=== PATIENT | male | born 1955 | race African-American/Black ===

== ENCOUNTER 2019-05-26 01:45 | Day surgery (SDC) | payer OTHER ==
[2019-05-26] MEDS ORDERED: ONDANSETRON 4 MG/2 ML VIAL ONE (13:38)
[2019-05-26] MEDS ORDERED: FENTANYL CITR 100 MCG/2 ML ONE (13:38)
[2019-05-26] MEDS ORDERED: propofoL 200 MG/20 ML VIAL IV ONE (13:38)
[2019-05-26] MEDS ORDERED: dexAMETHasone 10 MG/ML VIAL ONE (13:38)
[2019-05-26] MEDS ORDERED: MIDAZOLAM HCL 2 MG/2 ML INJ ONE (13:38)
[2019-05-26] MEDS ORDERED: LIDOCAINE 1% MPF 5 ML VIAL ONE (13:38)
--- OUTSIDE RECORDS SUMMARY | 2019-05-26 13:49 | XMS REPORT ---
:1955 [facility] Address [address] [place] [address] Dr. Jenkins [address] [place] [address] Care Team Providers Name Role Phone Unavailable Unavailable Unavailable Problems This patient has no known problems. Allergies, Adverse Reactions, Alerts This patient has no known allergies or adverse reactions. Medications This patient has no known medications.
--- OUTSIDE RECORDS SUMMARY | 2019-05-26 13:50 | XMS REPORT | Summary of Care ---
:1955 Author Organization [facility] - Health Address [address] [place] [address] Care Team Providers Name Role Phone [facility] Primary Care Provider [facility] Unavailable Onc, Tdcj Telemed Rad Ther Unavailable Unavailable Encounter Details Date Type Department Care Team Description 03/17/2019 Orders Only [facility] Doctor Unassigned, No [address] [facility] [place] [address] [address] [place] [address] Allergies No Known Allergiesdocumented as of this encounter (statuses as of 03/17/2019) Medications Medication Sig Dispensed Refills Start Date End Date Status citalopram 20 mg tablet Take 20 mg by 0 Active mouth at bedtime. risperiDONE 3 mg tablet Take 3 mg by 0 Active mouth every evening. amLODIPine 10 mg tablet Take 10 mg by 0 Active mouth daily. PHENYLEPH/PRAMOXIN/GLYCR Insert into 0 Active /W.PET (HEMORRHOIDAL rectum. CREAM RECTAL) spironolactone 25 mg Take 25 mg by 0 Active tablet mouth 2 (two) times daily. terazosin 10 mg capsule Take 10 mg by 0 Active mouth at bedtime. oxybutynin chloride 5 mg Take 1 tablet by 60 tablet 3 01/10/2018 Active tablet mouth 2 (two) times daily. documented as of this encounter (statuses as of 03/17/2019) Active Problems Problem Noted Date Radiation proctitis 12/21/2016 Overview: Added automatically from request for surgery [id number] Chronic kidney disease, unspecified stage 11/20/2016 Overview: Added automatically from request for surgery [id number] Cirrhosis of liver without ascites, unspecified hepatic cirrhosis type 2016 Overview: Added automatically from request for surgery [id number] Essential hypertension 11/06/2016 Back problem 11/06/2016 Chronic hepatitis C without hepatic coma 11/06/2016 Cirrhosis of liver without ascites 11/06/2016 Chronic kidney disease 11/06/2016 Schizoaffective disorder, depressive type 11/06/2016 Rectal bleeding 11/06/2016 Prostate cancer 09/22/2014 documented as of this encounter (statuses as of 03/17/2019) Social History Tobacco Use Types Packs/Day Years Used Date Never Assessed Sex Assigned at Date Recorded Not on file Job Start Date Occupation Industry Not on file Not on file Not on file Travel History Travel Start Travel End No recent travel history available. documented as of this encounter Last Filed Vital Signs Not on filedocumented in this encounter Plan of Treatment Date Type Specialty Care Team Description 03/17/2019 Maintenance Department Technician Visit Phlebotomy Sudarshan Kerns MD [address] [place] [address] [phone] Pob, Adc Lab Main 03/17/2019 Maintenance Department Technician Visit Phlebotomy Pob, Adc Lab Main Health Maintenance Due Date Last Done Comments DTaP,Tdap,and Td Vaccines (1 - Tdap) 1965 Zoster Recombinant Vaccine (SHINGRIX) (1 02/17/2004 of 2) LUNG CANCER SCREEN: Recommended for age 1202/16/2009 55-80 with 30 + pack year history INFLUENZA VACCINE (#1) 2018 Medicare Wellness Visit 2019 PNEUMOCOCCAL VACCINES 65+ (1 of 2 - PCV13) 2019 COLONOSCOPY 12/21/2026 12/21/2016 HEPATITIS C (HCV) SCREEN Completed 02/27/2019, 08/26/2018 documented as of this encounter Procedures Procedure Name Priority Date/Time Associated Diagnosis Comments ASSIGNMENT OF BENEFITS Routine 03/17/2019 8:51 AM SUPERVISOR TREATING AND PUMPING documented in this encounter Results Not on filedocumented in this encounter Insurance Payer Benefit Plan Subscriber ID Effective Phone Address Type / Group Dates MEDICARE MEDICARE PART xxxxxxxxxxx 1978-Pres [phone] Medicare A & B ent [id number] [place] [address] MEDICARE MEDICARE PART xxxxxxxxxxx 1978-Pres [phone] Medicare A & B ent [id number] [place] [address] AETNA - AETNA [id number] 2019-Pre [address] BOX Medicare Adv [facility] MEDICARE ADV sent [id number] [place] [address] documented as of this encounter
--- OUTSIDE RECORDS SUMMARY | 2019-05-26 13:50 | XMS REPORT | Summary of Care ---
:[address] [facility] Address [address] [place] [address] Care Team Providers Name Role Phone [facility] Primary Care Provider [facility] Unavailable Onc, Tdcj Telemed Rad Ther Unavailable Unavailable Reason for Visit Reason Comments LAB WORK Auth/Cert Status Reason Specialty Diagnoses / Procedures Referred By Contact Referred To Contact Phlebotomy Diagnoses B18.2 R53.83 Adc Pob Lab Draw Procedures Blood count complete auto comp met panel iadna hep c Professional Office Building [address] , [address] [place] [address] Encounter Details Date Type Department Care Team Description 03/17/2019 Elect Equip Maint Eng Visit [facility] Sudarshan Kerns MD [address] [place] [address] Routine general Professional Office Pob, Adc Lab Main medical examination Building Phlebotomy at a health care Lab facility (Primary Professional Office Dx) [address] , [address] [place] [address] Allergies No Known Allergiesdocumented as of this [...] Overview: Added automatically from request for surgery [id number] Chronic kidney disease, unspecified stage 11/20/2016 Overview: Added automatically from request for surgery [id number] Cirrhosis of liver without ascites, unspecified hepatic cirrhosis type 2016 Overview: Added automatically from request for surgery [id number] Essential hypertension 11/06/2016 Back problem 11/06/2016 Chronic [...] filedocumented in this encounter Plan of Treatment Name Type Priority Associated Diagnoses Date/Time CBC WITH DIFF LAB Routine Routine general medical 03/17/2019 9:[address] [facility] care facility COMP. METABOLIC PANEL LAB Routine Routine general medical 03/17/2019 9:11 AM ([id number]) examination at a [facility] facility HCV BY PCR LAB Routine Routine general medical 03/17/2019 9:11 AM examination at a [facility] CBC WITH DIFFERENTIAL LAB Routine Routine general medical 03/17/2019 9:11 AM examination at a [facility] Name Type Priority Associated Diagnoses Order Schedule CBC WITH DIFF LAB Routine Routine general medical Expected: 03/17/2019, examination at [facility] Expires: 03/17/2020 care facility COMP. METABOLIC PANEL LAB Routine Routine general medical Expected: 2019, ([id number]) examination at a health Expires: 03/17/2020 care facility HCV BY PCR LAB Routine Routine general medical Expected: 03/17/2019, examination at a health Expires: 03/17/2020 care facility Health Maintenance Due Date Last Done Comments [...] 02/27/2019, 08/26/2018 documented as of this encounter Results Not on filedocumented in this encounter Visit Diagnoses Diagnosis Routine general medical examination at a health care facility - Primary documented in this encounter Insurance Payer Benefit Plan Subscriber ID Effective Phone Address Type / Group Dates AETNA - AETNA [id number] 2019-Pres [address] Medicare Adv MANAGED MEDICARE ADV ent [id number] [place] [address] documented as of this encounter
--- OUTSIDE RECORDS SUMMARY | 2019-05-26 13:50 | XMS REPORT | Summary of Care ---
:1955 Author Organization [facility] Address [address] [place] [address] Care Team Providers Name Role Phone [facility] Primary Care Provider [facility] Unavailable Onc, Tdcj Telemed Rad Ther Unavailable Unavailable Reason for Visit Reason Comments UNABLE TO URINATE Hematuria Auth/Cert Status Reason Specialty Diagnoses / Referred By Referred To Procedures Contact Contact Emergency Medicine Diagnoses PROBLEM URINATING [facility] Emergency Dept [address] [place] [address] [place] [address] Encounter Details Date Type Department Care Team Description 05/23/2019 Emergency [facility]Emergency Braden Saunders, Urinary retention ( Primary Dx); Department Acute cystitis with hematuria; [address] [place] [address] [address] [facility] Hypertension, [place] [address] [id number] [place], [place] [address] Allergies No Known Allergiesdocumented as of this encounter (statuses as of 05/23/2019) Medications Medication Sig Dispensed Refills Start Date End Date Status citalopram 20 mg Take 20 mg 0 Active tablet by mouth at bedtime. risperiDONE 3 mg Take 3 mg by 0 Active tablet mouth every evening. amLODIPine 10 mg Take 10 mg 0 Active tablet by mouth daily. PHENYLEPH/PRAMOXIN/G Insert into 0 Active LYCR/W.PET rectum. (HEMORRHOIDAL CREAM RECTAL) spironolactone 25 mg Take 25 mg 0 Active tablet by mouth 2 (two) times daily. terazosin 10 mg Take 10 mg 0 Active capsule by mouth at bedtime. oxybutynin chloride Take 1 60 tablet 3 01/10/2018 Active 5 mg tablet tablet by mouth 2 (two) times daily. cephALEXin (KEFLEX) Take 1 10 capsule 0 05/23/2019 Active 500 mg capsule by capsuleIndications: mouth 2 Urinary retention, (two) times Acute cystitis with daily. hematuria phenazopyridine 200 Take 1 9 tablet 0 05/23/2019 Active mg tablet by tabletIndications: mouth 3 Urinary retention (three) times daily. phenazopyridine 200 Take 1 9 tablet 0 05/23/2019 05/23/19 Discontinued mg tablet by 20 (Duplicate) tabletIndications: mouth 3 Urinary retention, (three) Acute cystitis with times daily. hematuria documented as of this encounter (statuses as of 05/23/2019) Active Problems Problem Noted Date Radiation proctitis 12/21/2016 Overview: Added automatically from request for surgery [id number] Chronic kidney disease, unspecified stage 11/20/2016 Overview: Added automatically from request for surgery [id number] Cirrhosis of liver without ascites, unspecified hepatic cirrhosis type 2016 Overview: Added automatically from request for surgery [id number] Essential hypertension 11/06/2016 Back problem 11/06/2016 Chronic hepatitis C without hepatic coma 11/06/2016 Cirrhosis of liver without ascites 11/06/2016 Chronic kidney disease 11/06/2016 Schizoaffective disorder, depressive type 11/06/2016 Rectal bleeding 11/06/2016 Prostate cancer 09/22/2014 documented as of this encounter (statuses as of 05/23/2019) Social History Tobacco Use Types Packs/Day Years Used Date Former Smoker Cigarettes 1.5 6 Quit: 09/23/2007 Smokeless Tobacco: Never Used Alcohol Use Drinks/Week oz/Week Comments Not Asked Sex Assigned at Date Recorded Not on file Job Start Date Occupation Industry Not on file Not on file Not on file Travel History Travel Start Travel End No recent travel history available. 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 PROCEDURES IN THE ER TODAY: Orders Placed This Encounter Procedures URINALYSIS CBC WITH DIFF BASIC METABOLIC PANEL (NA, K, CL, CO2, GLUCOSE, BUN, CREATININE, CA) CBC WITH DIFFERENTIAL URINE CULTURE MEDICATIONS ADMINISTERED IN THE ER TODAY AND DISCHARGE MEDICATIONS: Orders Placed This Encounter Medications cefTRIAXone (ROCEPHIN) 1,000 mg in NaCl 0.9% (NS) 50 mL MINI-BAG cephALEXin (KEFLEX) 500 mg capsule phenazopyridine 200 mg tablet FOLLOW-UP RECOMMENDATIONS: RECOMMEND FOLLOW-UP WITH YOUR UROLOGIST, DR CABRAL In [place] OR [facility] . CALL [phone] TO SCHEDULE UROLOGY CLINIC APPOINTMENT RETURN TO ER FOR WORSENING OF SYMPTOMS AttachmentsThe following attachments cannot be sent through Care Everywhere.Urinary Retention, Male (Mongolian)Urinary Tract Infections (UTIs), Understanding (Mongolian)documented in this encounter Plan of Treatment Name Type Priority Associated Diagnoses Date/Time URINE CULTURE LAB STAT Urinary retention 05/23/2019 9:31 PM CDT Name Type Priority Associated Diagnoses Order Schedule URINE CULTURE LAB Routine Urinary retention ONCE for 1 Occurrences starting 05/23/2019 until 05/23/2019 URINE CULTURE LAB Routine Urinary retention ONCE for 1 Occurrences starting 05/23/2019 until 05/23/2019 Health Maintenance Due Date Last Done Comments [...] encounter Procedures Procedure Name Priority Date/Time Associated Comments Diagnosis CBC WITH DIFFERENTIAL STAT 05/23/2019 9:31 Urinary retention Results for this PM CDT procedure are in the results section. URINALYSIS STAT 05/23/2019 9:31 Urinary retention Results for this PM CDT procedure are in the results section. CBC WITH DIFFERENTIAL STAT 05/23/2019 9:31 Urinary retention Results for this PM CDT procedure are in the results section. BASIC METABOLIC PANEL STAT 05/23/2019 9:31 Urinary retention Results for this (NA, K, CL, CO2, PM CDT procedure are in GLUCOSE, BUN, the results CREATININE, CA) section. documented in this encounter Results CBC WITH DIFFERENTIAL (05/23/2019 9:31 PM CDT) WBC 7.98 4.20 - 10.70 [facility] 10*3/L [facility] RBC 5.94 (H) 4.26 - 5.52 [facility] 10*6/L [facility] HGB 16.3 12.2 - 16.4 [facility] g/dL [facility] HCT 48.6 38.4 - 49.3 % [facility] MCV 81.8 81.7 - 95.6 fL [facility] MCH 27.4 26.1 - 32.7 pg [facility] MCHC 33.5 31.2 - 35.0 [facility] g/dL [facility] RDW-SD 43.6 38.5 - 51.6 fL [facility] RDW-CV 14.9 12.1 - 15.4 % [facility] PLT 244 150 - 328 [facility] 10*3/L [facility] MPV 9.1 (L) 9.8 - 13.0 fL [facility] NRBC/100 WBC 0.0 0.0 - 10.0 /100 [facility] WBCs [facility] NRBC x10^3 <0.01 10*3/L [facility] GRAN MAT (NEUT) % 41.9 % [facility] IMM GRAN % 0.10 % [facility] LYMPH % 45.9 % [facility] MONO % 7.9 % [facility] EOS % 3.6 % [facility] BASO % 0.6 % [facility] GRAN MAT x10^3(ANC) 3.34 1.99 - 6.95 [facility] 10*3/uL [facility] IMM GRAN x10^3 <0.03 0.00 - 0.06 [facility] 10*3/uL [facility] LYMPH x10^3 3.66 (H) 1.09 - 3.23 [facility] 10*3/uL [facility] MONO x10^3 0.63 0.36 - 1.02 [facility] 10*3/uL [facility] EOS x10^3 0.29 0.06 - 0.53 [facility] 10*3/uL [facility] BASO x10^3 0.05 0.01 - 0.09 [facility] 10*3/uL [facility] Specimen Blood - VENOUS Performing Organization Address City/State/Zipcode Phone Number [facility] CLIA: [id number], [address] [place], [place] [id number] [phone] BASIC METABOLIC PANEL (NA, K, CL, CO2, GLUCOSE, BUN, CREATININE, CA) (2019 9:31 PM CDT) NA 142 135 - 145 mmol/L [facility] K 3.8 3.5 - 5.0 mmol/L [facility] CL 108 98 - 108 mmol/L [facility] CO2 TOTAL 23 23 - 31 mmol/L [facility] AGAP 11 2 - 16 [facility] BUN 22 7 - 23 mg/dL [facility] GLUCOSE 98 70 - 110 mg/dL [facility] CREATININE 0.94 0.60 - 1.25 [facility] mg/dL [facility] CALCIUM 10.0 8.6 - 10.6 mg/dL [facility] eGFR Calculation 80.5 mL/min/1.73m2 [facility] (Non-) [facility] eGFR Calculation 97.6 mL/min/1.73m2 [facility] () [facility] Specimen Blood - VENOUS Narrative Performed At Association of Glomerular Filtration Rate (GFR) [facility] and Staging of Kidney Disease* + + +- + | GFR (mL/min/1.73 m2) | With Kidney Damage | Without Kidney Damage + + +- + | >90 | Stage one | Normal + + +- + | 60-89 | Stage two | Decreased GFR + + +- + | 30-59 | Stage three | Stage three + + +- + | 15-29 | Stage four | Stage four + + +- + | <15 (or dialysis) | Stage five | Stage five + + +- + *Each stage assumes the associated GFR level has been in effect for at least three months. Stages 1 to 5, with or without kidney disease, indicate chronic kidney disease. Notes: Determination of stages one and two (with eGFR >59mL/min/1.73 m2) requires estimation of kidney damage for at least three months as defined by structural or functional abnormalities of the kidney, manifested by either: Pathological abnormalities or Markers of kidney damage (including abnormalities in the composition of the blood or urine or abnormalities in imaging tests). Performing Organization Address [facility] Phone Number [facility] CLIA: [id number], [address] [place] [address] [phone] URINALYSIS (05/23/2019 9:31 PM CDT) APPEARANCE Cloudy (A) Clear [facility] COLOR Red (A) Yellow [facility] PH 6.0 4.8 - 8.0 [facility] SP GRAVITY 1.014 1.003 - 1.030 [facility] GLU U QUAL Normal Normal [facility] BLOOD 2+ (A) Negative [facility] KETONES Negative Negative [facility] PROTEIN 100 mg/dL (A) Negative [facility] UROBILIN Normal Normal [facility] BILIRUBIN Negative Negative [facility] NITRITE Negative Negative [facility] LEUK ROSA Negative Negative [facility] RBC/HPF >182 (H) 0 - 3 HPF [facility] WBC/HPF 38 (H) 0 - 5 HPF [facility] BACTERIA Moderate (A) Negative [facility] Specimen Urine - URINE, CLEAN CATCH Performing Organization Address [facility] Phone Number [facility] CLIA: [id number], [address] [place] [address] documented in this encounter Visit Diagnoses Diagnosis Urinary retention - Primary Retention of urine, unspecified Acute cystitis with hematuria Acute cystitis Hypertension, unspecified type documented in this encounter Administered Medications Medication Order MAR Action Action Date Dose Rate Site cefTRIAXone (ROCEPHIN) 1,000 mg Given 05/23/2019 11:08 PM CDT 1,000 mg in NaCl 0.9% (NS) 50 mL MINI-BAG 1,000 mg, IV Piggyback, ONCE, 1 dose, 05/24/19 at 0000, 50 mL, Reason for Anti-Infective: Documented Infection, Documented Infection Site: Urine, Duration of Therapy: Other (see Comments) documented in this encounter Insurance Payer Benefit Plan Subscriber ID Effective Phone Address Type / Group Dates AETNA - AETNA [id number] 2019-Pres [address] Medicare Adv MANAGED MEDICARE ADV ent [id number] [place] [address] (Home) [place] [address] documented as of this encounter"
[2019-05-26] MEDS: HYDROMORPHONE HCL 1 MG/ML INJ ONE ×4 (13:55→16:00)
[2019-05-26] MEDS ORDERED: GENTAMICIN 80 MG/100 ML BAG 80 MG/100 ML BAG IV ONE (13:57)
[2019-05-26] MEDS ORDERED: Ringers Lactate 1,000 ML IV ONE (13:57)
[2019-05-26 14:23] LABS: Absolute Lymphocytes (CBC) 2.7 K/uL (0.7-4.9); Hematocrit 45.3 % (39.6-49.0); Lymphocytes % 42.1 % (15.3-44.8); MPV 7.8 fL (7.6-11.3); RBC Red Blood Cell Count 5.63 M/uL (4.33-5.43)
[2019-05-26 14:24] LABS: Protime INR 1.11
[2019-05-26 14:35] LABS: BUN Blood Urea Nitrogen 15 mg/dL (7-18); Bicarbonate 27 mmol/L (21-32); Glucose Level 85 mg/dL (74-106); Potassium 3.6 mmol/L (3.5-5.1); Sodium Level 142 mmol/L (136-145)
[2019-05-26] MEDS ORDERED: GLYCOPYRROLATE 0.2 MG/ML SYR ONE (15:29)
[2019-05-26] MEDS ORDERED: PROMETHAZINE INJ 25 MG/ML AMP ONE (15:49)
[2019-05-26] MEDS: FENTANYL CITR 100 MCG/2 ML ONE ×2 (16:08→16:15)
[2019-05-26] MEDS ORDERED: TRAMADOL HCL 50 MG TAB ONE (16:18)
[2019-05-26] MEDS ORDERED: OXYBUTYNIN CHLORIDE 5 MG TAB ONE (17:07)
[2019-05-26 17:44] VITALS: TEMP 97.2
[2019-05-26 17:47] VITALS: BP 196/98
[2019-05-26 17:48] VITALS: O2SAT 100
--- NOTE | 2019-05-27 10:58 | EKG ---
Test Date: 2019-05-26 Test Time: 14:12:44 Ground Operations Crew Member: ANCELMO MEASUREMENT RESULTS: Intervals: Rate: 48 [place]: 206 QRSD: 110 QT: 450 QTc: 402 [place]: P: 62 [place]: 206 QRS: 16 T: 37 INTERPRETIVE STATEMENTS: Marked sinus bradycardia Abnormal ECG Compared to ECG 11/20/2018 10:29:43 T-wave abnormality no longer present Electronically Signed On 05-27-19 10:56:19 CDT by Stephen Tamez
== END 2019-05-26 17:45 | disposition home or self-care (01) ==
LOC: OR 01:45
PROVIDERS: ATTEND Urology
PROC: 0VT08ZZ Resection of Prostate, Via Natural or Artificial Opening Endoscopic (ICD-10-PCS; principal; 2019-05-26 12:30)
DX: N40.1 Benign prostatic hyperplasia with lower urinary tract symptoms (principal); N39.0 Urinary tract infection, site not specified; R39.12 Poor urinary stream; N42.9 Disorder of prostate, unspecified; I10 Essential (primary) hypertension; G89.29 Other chronic pain; M54.9 Dorsalgia, unspecified; F20.9 Schizophrenia, unspecified; F17.200 Nicotine dependence, unspecified, uncomplicated; Z82.49 Family history of ischemic heart disease and other diseases of the circulatory system; Z82.3 Family history of stroke
CPT/HCPCS: 93005; 85025; 80048; 36415; 85610; 88305; 85730; 52601; J2704; J2250; J3010 ×2; J1100; J1170 ×2; J7120; J1580; J2405; J2550

== ENCOUNTER 2023-09-04 10:49 | Day surgery (SDC) | payer OTHER ==
[2023-09-02 11:20] LABS: Absolute Basophils 0.1 K/uL (0-0.5); Absolute Eosinophils 0.2 K/uL (0-0.5); Absolute Monocytes 0.3 K/uL (0.1-1.3); Basophils % 0.9 % (0-1.3); Eosinophils % 4.1 % (0-4.4); Hematocrit 44.5 % (39.6-49.0); Hemoglobin 14.8 g/dL (13.6-17.9); Lymphocytes % 35.1 % (15.3-44.8); MCH 28.7 pg (27.0-35.0); MCHC 33.4 g/dL (32.0-36.0); MCV 86.1 fL (80-100); MPV 8.3 fL (7.6-11.3); Neutrophils % 53.9 % (41.7-73.7); Nucleated Red Blood Cells % 0.1 % (0-0); Platelets 221 thou/uL (152-406); RBC Red Blood Cell Count 5.17 M/uL (4.33-5.43); Red Cell Distribution Width 15.1 % (12.1-15.2)
[2023-09-02 11:33] LABS: Albumin 3.6 g/dL (3.4-5.0); Albumin/Globulin Ratio 0.9 (1.1-1.8); Anion Gap 4.3 mEq/L (5.0-15.0); Bilirubin Total 0.4 mg/dL (0.2-1.0); Globulin 3.9 g/dL (2.3-3.5); Potassium 3.3 mEq/L (3.5-5.1); Protein, Total 7.5 g/dL (6.4-8.2)
--- NOTE | 2023-09-02 14:13 | EKG ---
Test Date: 2023-09-02 Test Time: 10:43:20 Lens Grinder And Polisher: ANTHONY MEASUREMENT RESULTS: Intervals: Rate: 66 [place]: 194 QRSD: 96 QT: 404 QTc: 423 [place]: P: 72 [place]: 194 QRS: 31 T: 74 INTERPRETIVE STATEMENTS: Normal sinus rhythm Nonspecific T wave abnormality Abnormal ECG Compared to ECG 05/26/2019 14:12:44 T-wave abnormality now present Sinus bradycardia no longer present Electronically Signed On 09-02-23 14:12:36 CDT by David Mckeon
[2023-09-04] MEDS: Ringers Lactate 1,000 ML IV ONE (11:20)
[2023-09-04] MEDS ORDERED: propofoL 200 MG/20 ML VIAL IV ONE (12:06)
[2023-09-04] MEDS ORDERED: ROCURONIUM 50 MG/5 ML VIAL IV ONE (12:06)
[2023-09-04] MEDS ORDERED: FENTANYL CITR 100 MCG/2 ML ONE (12:06)
[2023-09-04] MEDS ORDERED: KETOROLAC 30 MG/ML INJ ONE (12:06)
[2023-09-04] MEDS ORDERED: ONDANSETRON 4 MG/2 ML VIAL ONE (12:06)
[2023-09-04] MEDS ORDERED: dexAMETHasone 10 MG/ML VIAL ONE (12:06)
[2023-09-04] MEDS ORDERED: MIDAZOLAM HCL 2 MG/2 ML INJ ONE (12:06)
[2023-09-04] MEDS ORDERED: LIDOCAINE 2% MPF 5 ML VIAL ONE (12:06)
[2023-09-04] MEDS: CEFOXITIN SODIUM 2 GM/VIAL ONE (12:29)
[2023-09-04] MEDS ORDERED: GLYCOPYRROLATE 0.2 MG/ML SYR ONE (12:33)
[2023-09-04] MEDS ORDERED: EPHEDRINE SULF 50 MG/ML VIAL ONE (12:33)
[2023-09-04] MEDS: LIDOCAINE HCL/EPINEPHRINE 20 ML MDV ONE (12:45)
--- NOTE | 2023-09-04 13:49 | P.OP ---
Preoperative diagnosis: Chronic Cholecystitis Postoperative diagnosis: Chronic Cholecystitis Primary procedure: Laparoscopic Cholecystectomy with ICG Anesthesia: GETA + Local Estimated blood loss: <5cc Specimen: Gallbladder Findings: Contracted GB with stones, duodenal adhesions Complications: None Transferred to: Recovery Room Condition: Good
[2023-09-04] MEDS: HYDROMORPHONE HCL 1 MG/ML INJ ONE (14:18)
--- NOTE | 2023-09-04 15:15 | OP ---
Date of Procedure: 09/04/2023 Surgeon: Didier Felder MD, Preoperative Diagnosis: Chronic cholecystitis. Postoperative Diagnosis: Chronic cholecystitis. Procedure: Laparoscopic cholecystectomy with the indocyanine green cholangiography. Anesthesia: General endotracheal plus local with 1% lidocaine with epinephrine. Estimated Blood Loss: Less than 5 cc. Specimen: Gallbladder. Findings: Contracted gallbladder with stones and duodenal adhesions to the gallbladder. Complications: None. Disposition: The patient was transferred to recovery room in good condition. Procedure In Detail: After informed consent was obtained, the patient was brought to the operating r oom, prepped and draped in the usual sterile fashion. After adequate anesthesia was achieved, I anes thetized the area of the supraumbilical position down to subcutaneous tissues. 5 mm 0-degree optical trocar was then introduced in the abdomen without incident or complication. Insufflation was obtain ed to 15 mmHg at this time. There was no injury to vital structures upon entry in the abdomen. Thre e additional trocars were placed, one in the epigastrium, one in the right upper quadrant, one in the right mid abdomen, while 5 mm trocar was placed under direct visualization without incident or compl ication. The umbilical trocar was then upsized to a 12 mm under direct visualization without inciden t or complication. The patient was positioned head up, right-side up position. Ratcheted grasper wa s used to grasp the patient's gallbladder and place it towards the patient's right shoulder. Dissect ion continued down the Emma pouch of the gallbladder, dissecting off the duodenum off the anterio r surface of the gallbladder with thick adhesions. Combination of blunt dissection predominantly and minimal electrocautery were used to dissect and separate these structures. After this was completed , there was no injury to duodenal structure. At this point, I performed an indocyanine green cholang iography, identifying the cystic duct, common duct confluence. I then dissected out two structures t o identify both cystic duct and cystic artery. The critical view of safety was obtained, at this poi nt. After the structures were appropriately skeletonized, I then placed double titanium clips doubly on the proximal side and singly on the distal side of both cystic duct and cystic artery. These str uctures were then ligated between Endo Clarita. At this point, the gallbladder was removed from the h epatic fossa without incident or complication. Minimal hemostasis was acquired using electrocautery. Then, I placed gallbladder in an EndoCatch bag, removed through the umbilical trocar site, sent off for pathologic examination. The area was copiously irrigated multiple times until completely dry. Clips were found to be in good anatomic position. Indocyanine green cholangiography confirmed no kleber kage of bile at the end of the procedure. At this point, the patient was positioned back in neutral position. Remaining effluent was suctioned out. I then closed the 12 mm trocar site using a Carlos- Davion suture passer with 0 Vicryl in an interrupted fashion, with good approximation of tissues. The abdomen was desufflated under direct visualization without incident or complication. Remainder o f trocars were removed. All skin incisions were then copiously irrigated and closed with a 4-0 Monoc ryl in a running fashion. Dermabond was placed over top. The patient tolerated the procedure well w ithout incident or complication, transferred to PACU in good condition. All counts were correct at t he end of the case. DARRICK/REEMA Voice ID: [id number] Report ID: [id number]
[2023-09-04] MEDS: HYDROCODONE/APAP 10/325 TAB ONE (15:17)
[2023-09-04 15:44] VITALS: BP 167/83; TEMP 97; O2SAT 96
== END 2023-09-04 16:53 | disposition home or self-care (01) ==
LOC: OR 10:49
PROVIDERS: ATTEND Surgery
PROC: BF50200 Other Imaging of Bile Ducts using Fluorescing Agent, Indocyanine Green Dye, Intraoperative (ICD-10-PCS; 2023-09-04)
PROC: 0FT44ZZ Resection of Gallbladder, Percutaneous Endoscopic Approach (ICD-10-PCS; principal; 2023-09-04 12:30)
DX: K80.10 Calculus of gallbladder with chronic cholecystitis without obstruction (principal)
CPT/HCPCS: 93005; 85025; 36415; 88304; 80053; 47563; J2704; J2001; J2250; J3010; J1100; J1170; J0694; J2405; J7120

== ENCOUNTER 2024-06-04 16:17 | Emergency (ER) | payer OTHER ==
[2024-06-04 18:54] LABS: Specific Gravity 1.013 (1.005-1.030); Sqamous Epithelial None Seen /HPF (None Seen); Urine Bacteria <20 /HPF (<20); Urine Bilirubin NEGATIVE (Negative); Urine Blood 3+ (Negative); Urine Clarity Turbid (Clear); Urine Color Dark-Yellow (Yellow); Urine Crystals Unidentified Few /HPF (None Seen); Urine Culture Reflex Order NOT NEEDED; Urine Glucose NEGATIVE (Negative); Urine Ketones NEGATIVE (Negative); Urine Microscopic Reflex YN ORDER UMIC; Urine Mucus Slight /HPF (None Seen); Urine Nitrite NEGATIVE (Negative); Urine Protein NEGATIVE (Negative); Urine RBC 21-50 /HPF (None Seen); Urine Urobilinogen Normal (Normal); Urine WBC <5 /HPF (<5); Urine Yeast (Budding) Trace /HPF (None Seen); Urine pH 5.5 (5.0-7.0)
--- NOTE | 2024-06-04 18:58 | ER ---
Nurse's Notes [facility] Name: Alexey Garland Jr Age: 69 yrs Sex: Male : 1955 Arrival Date: 06/04/2024 Time: 16:17 Bed 16 Private MD: Diagnosis: Leakage of urinary (indwelling) catheter;Acute cystitis with hematuria Presentation: 06/04 16:32 Chief complaint: Patient states: KINCAID CATHETER LEAKING AROUND URETHRA. STATES PLACED db ON Saturday 2 DAYS AGO. DENIES PAIN. STATES PROSTATES SURGERY ON 06/02. Coronavirus screen: Client denies travel out of the [place] in the last 14 days. At this time, the client does not indicate any symptoms associated with coronavirus-19. Ebola Screen: Patient negative for fever greater than or equal to 101.5 degrees Fahrenheit, and additional compatible Ebola Virus Disease symptoms Patient denies exposure to infectious person. Patient denies travel to an Ebola-affected area in the 21 days before illness onset. No symptoms or risks identified at this time. Initial Sepsis Screen: Does the patient meet any 2 criteria? No. Patient's initial sepsis screen is negative. Does the patient have a suspected source of infection? No. Patient's initial sepsis screen is negative. Risk Assessment: Do you want to hurt yourself or someone else? Patient reports no desire to harm self or others. Onset of symptoms was June 04, 2024. 16:32 Method Of Arrival: Ambulatory db 16:32 Acuity: PIPE 4 db Triage Assessment: 16:32 General: Appears in no apparent distress. comfortable, Behavior is calm, cooperative. db Neuro: Level of Consciousness is awake, alert, obeys commands, Oriented to person, place, time, situation. Respiratory: Airway is patent Respiratory effort is even, unlabored, Respiratory pattern is regular, symmetrical. : Kincaid in place. Historical: - Allergies: 16:23 No Known Allergies; ll1 - PMHx: 16:23 Anxiety; Hypertensive disorder; ll1 - Immunization history:: Adult Immunizations up to date. - Infectious Disease History:: Denies. - Social history:: Smoking status: Patient denies any tobacco usage or history of. Screenin:24 [facility] ED Fall Risk Assessment (Adult) History of falling in the last 3 months, db including since admission No falls in past 3 months (0 pts) Confusion or Disorientation No (0 pts) Intoxicated or Sedated No (0 pts) Impaired Gait No (0 pts) Mobility Assist Device Used No (0 pt) Altered Elimination No (0 pt) Score/Fall Risk Level 0 - 2 = Low Risk Oriented to surroundings, Maintained a safe environment. Abuse screen: Denies threats or abuse. Denies injuries from another. Nutritional screening: No deficits noted. Tuberculosis screening: No symptoms or risk factors identified. Assessment: 16:35 Reassessment: SEE TRIAGE FOR INITIAL ASSESSMENT. db 17:05 Reassessment: PATIENT CATHETER BALLOON REINFLATED WITH 10 CC NS. NOTED BALLOON NOT db FULLY INFLATED. CATHETER BAG CHANGED AND CATHETER SECURED WITH KINCAID SECURE DEVICE. PROVIDER NOTIFIED. Vital Signs: 16:32 BP 160 / 115; Pulse 84; Resp 18; Temp 98.8; Pulse Ox 95% ; Weight 102.06 kg; Height 6 db ft. 0 in. ; 16:32 Body Mass Index 30.52 (102.06 kg, 182.88 cm) db ED Course: 16:22 Patient arrived in ED. im 16:23 Kassandra Mae is Attending Physician. ci 16:23 Arm band placed on Patient placed in an exam room, on a stretcher. ll1 16:27 Silvia Dalal, RN is Primary Nurse. db 16:33 Triage completed. db 17:05 Urine collected: Kincaid catheter specimen, FROM CATHETER OF KINCAID. db 17:24 Patient has correct armband on for positive identification. Bed in low position. Call db light in reach. Side rails up X 1. Administered Medications: No medications were administered Outcome: 18:58 Discharge ordered by . ci 19:08 Patient left the ED. rg5 Signatures: Jeff Meléndez RN RN ll1 Silvia Dalal, RN RN db Mylene Holguin Kassandra Mae ci Bebeto Terrell, RN RN rg5
--- NOTE | 2024-06-04 18:58 | EDPHYS ---
Physician Documentation [facility] Name: Alexey Garland Jr Age: 69 yrs Sex: Male : 1955 Arrival Date: 06/04/2024 Time: 16:17 Bed 16 Private MD: ED Physician Kassandra Mae HPI: 06/04 16:38 This 69 yrs old Black Male presents to ER via Ambulatory with complaints of Problem ci With Urinary Catheter. 16:38 Patient is a 69-year-old male with PMH hypertension, prostate cancer s/p prostate ci surgery on 06/02/[address] [facility] [address] Alves who presents to the ED with leakage from urinary catheter. Patient reports he had catheter placed at [facility] and has noted that catheter has pulled back a little. Endorses dysuria and hematuria. Historical: - Allergies: 16:23 No Known Allergies; ll1 - PMHx: 16:23 Anxiety; Hypertensive disorder; ll1 - Immunization history:: Adult Immunizations up to date. - Infectious Disease History:: Denies. - Social history:: Smoking status: Patient denies any tobacco usage or history of. ROS: 16:38 Constitutional: Negative for fever, chills, and weight loss, : Negative for injury, ci bleeding, discharge, and swelling, Positive dysuria, hematuria Exam: 16:38 Constitutional: This is a well developed, well nourished patient who is awake, alert, ci and in no acute distress. Head/Face: Normocephalic, atraumatic. Eyes: Pupils equal round and reactive to light, extra-ocular motions intact. Lids and lashes normal. Conjunctiva and sclera are non-icteric and not injected. Cornea within normal limits. Periorbital areas with no swelling, redness, or edema. ENT: Nares patent. No nasal discharge, no septal abnormalities noted. Tympanic membranes are normal and external auditory canals are clear. Oropharynx with no redness, swelling, or masses, exudates, or evidence of obstruction, uvula midline. Mucous membranes moist. Neck: Trachea midline, no thyromegaly or masses palpated, and no cervical lymphadenopathy. Supple, full range of motion without nuchal rigidity, or vertebral point tenderness. No Meningismus. Chest/axilla: Normal chest wall appearance and motion. Nontender with no deformity. No lesions are appreciated. Cardiovascular: Regular rate and rhythm with a normal S1 and S2. No gallops, murmurs, or rubs. Normal PMI, no JVD. No pulse deficits. Respiratory: Lungs have equal breath sounds bilaterally, clear to auscultation and percussion. No rales, rhonchi or wheezes noted. No increased work of breathing, no retractions or nasal flaring. Abdomen/GI: Soft, non-tender, with normal bowel sounds. No distension or tympany. No guarding or rebound. No evidence of tenderness throughout. Back: No spinal tenderness. No costovertebral tenderness. Full range of motion. Skin: Warm, dry with normal turgor. Normal color with no rashes, no lesions, and no evidence of cellulitis. MS/ Extremity: Pulses equal, no cyanosis. Neurovascular intact. Full, normal range of motion. Vital Signs: 16:32 BP 160 / 115; Pulse 84; Resp 18; Temp 98.8; Pulse Ox 95% ; Weight 102.06 kg; Height 6 db ft. 0 in. ; 16:32 Body Mass Index 30.52 (102.06 kg, 182.88 cm) db MDM: 16:24 Medical Screening Exam initiated ci 18:29 Differential Diagnosis Giraldo catheter malfunction, UTI, cystitis. Data reviewed: vital ci signs, nurses notes. ED course: Patient well-appearing and in no apparent distress, Giraldo catheter balloon was inflated with improvement in leakage of urinary catheter. Patient is scheduled to see his urologist Dr. Alves on June 09. He is on antibiotic but unclear which 1, if UA is consistent with UTI, will start on additional antibiotics.. 19:00 ED course: UA concerning for cystitis, patient reports he is on antibiotics that starts ci with a C, will start on Bactrim while awaiting cultures.. 06/04 16:38 Order name: Urinalysis w/ reflexes; Complete Time: 18:55 ci 06/04 18:56 Interpretation: Abnormal: UESTR 75; URBC 21-50. ci Administered Medications: No medications were administered Disposition Summary: 06/04/24 18:58 Discharge Ordered Notes: Location: Home ci Condition: Stable ci Diagnosis - Leakage of urinary (indwelling) catheter ci - Acute cystitis with hematuria ci Followup: ci - With: Private Physician - When: 2 - 3 days - Reason: Recheck today's complaints, Re-evaluation by your physician Discharge Instructions: - Discharge Summary Sheet ci - Urinary Tract Infection, Adult, [id number] ci - Indwelling Urinary Catheter Care, Adult, [id number] ci Forms: - Medication Reconciliation Form ci - Antibiotic Education ci - Prescription Opioid Use ci - Patient Portal Instructions ci - Leadership Thank You Letter ci Prescriptions: - Bactrim DS 800-160 mg Oral tablet - take 1 tablet ORAL route every 12 hours for 7 days; 14 tablet; Refills: 0, ci Product Selection Permitted Signatures: Dispatcher [employer] Jeff Miranda RN RN ll1 Silvia Dalal RN RN Kassandra Mae ci
[2024-06-04 19:31] VITALS: BP 160/115; TEMP 98.8; O2SAT 95
== END 2024-06-04 19:08 | disposition home or self-care (01) ==
LOC: ER 16:17
DX: T83.038A Leakage of other urinary catheter, initial encounter (principal); N30.01 Acute cystitis with hematuria; Z98.890 Other specified postprocedural states; Z85.46 Personal history of malignant neoplasm of prostate
CPT/HCPCS: 81001; 99282